=== PATIENT | male | born 1960 | race African-American/Black ===

== ENCOUNTER 2022-11-27 10:18 | Emergency (ER) | payer MEDICAID ==
[~2022-11-27] VITALS: Ht 180.3 cm; Wt 81.8 kg
[2022-11-27] MEDS ORDERED: PERTUSS(ACELL),DIPH,TET VAC/PF 0.5 ML SYRINGE IM. ONE (12:45)
[2022-11-27 12:51] VITALS: BP 164/93
== END 2022-11-27 13:37 | disposition home or self-care (01) ==
LOC: EMS 10:23
DX: S61.317A Laceration without foreign body of left little finger with damage to nail, initial encounter (principal); I10 Essential (primary) hypertension; W26.0XXA Contact with knife, initial encounter; Y93.89 Activity, other specified; Y92.89 Other specified places as the place of occurrence of the external cause; Y99.8 Other external cause status
CPT/HCPCS: 12001; 90471; 90715; 99283

== ENCOUNTER 2024-02-21 08:54 | Emergency (ER) | payer MEDICAID ==
[~2024-02-21] VITALS: Ht 177.8 cm; Wt 98.2 kg
[~2024-02-21 08:54] MED LIST: PENI500T2 PO
[2024-02-21 08:56] VITALS: TEMP 98.6
[2024-02-21] MEDS: ACETAMINOPHEN 500 MG TABLET PO ONE (09:36)
[2024-02-21 09:40] LABS: BASOPHILS % (AUTO) 1.5 % (0.0-2.0); EOSINOPHILS % (AUTO) 7.5 % (1.0-6.0); HEMATOCRIT 43.8 % (41-53); LYMPHOCYTES # (AUTO) 1.8 K/uL (1.0-4.8); LYMPHOCYTES % (AUTO) 24.4 % (22.0-44.0); MEAN CORPUSCULAR HGB CONC 34.3 G/dL (31.0-37.0); MEAN CORPUSCULAR VOLUME 93 fL (80-100); MONOCYTES # (AUTO) 0.4 K/uL (0.1-1.0); MONOCYTES % (AUTO) 4.7 % (2.0-9.0); NEUTROPHILS # (AUTO) 4.6 K/uL (1.8-7.7); NEUTROPHILS % (AUTO) 61.9 % (40.0-70.0); PLATELET COUNT (AUTO) 243 K/uL (150-450); RED BLOOD CELL COUNT(AUTO) 4.71 MIL/uL (4.50-5.90); RED CELL DISTRIBUTION WIDTH 12.8 % (11.5-14.5); WHITE BLOOD COUNT (AUTO) 7.5 K/uL (4.5-11.0)
[2024-02-21 09:41] LABS: COVID AG,FIA SOURCE NASAL SWAB
[2024-02-21 09:48] LABS: CREATININE 1.45 mg/dL (0.60-1.30); POTASSIUM 4.1 mmol/L (3.5-5.1)
[2024-02-21 09:56] LABS: TROPONIN I-HIGH SENSITIVITY 11 ng/L (<76)
[2024-02-21 10:15] LABS: BILIRUBIN,TOTAL 0.7 mg/dL (0.1-1.0); TOTAL PROTEIN, SERUM 8.3 g/dL (6.4-8.2)
[2024-02-21 10:17] LABS: SARS-COV2 (COVID) ANTIGEN,FIA Negative (Negative)
[2024-02-21] MEDS: IBUPROFEN 600 MG TABLET PO ONE (10:22)
[2024-02-21 10:26] LABS: ALCOHOL, URINE DRUG SCREEN NEGATIVE (NEGATIVE); AMPHET/METH SCREEN,URINE NEGATIVE (NEGATIVE); BARBITURATE SCREEN, URINE NEGATIVE (NEGATIVE); BENZODIAZEPINES SCREEN,URINE NEGATIVE (NEGATIVE); CANNABINOID SCREEN,URINE NEGATIVE (NEGATIVE); COCAINE SCREEN,URINE NEGATIVE (NEGATIVE); METHADONE SCREEN, URINE NEGATIVE (NEGATIVE); OPIATE SCREEN,URINE NEGATIVE (NEGATIVE); PHENCYCLIDINE SCREEN,URINE NEGATIVE (NEGATIVE)
[2024-02-21 10:30] VITALS: BP 236/142; PULSE 69; RESP 16
[2024-02-21] MEDS ORDERED: IBUP-1492 PO (10:33)
[2024-02-21] MEDS ORDERED: ACET-3385 PO (10:33)
== END 2024-02-21 11:09 | disposition left against medical advice (07) ==
LOC: EMS 08:54
DX: I10 Essential (primary) hypertension (principal); M79.671 Pain in right foot; Z20.822 Contact with and (suspected) exposure to COVID-19
CPT/HCPCS: 71045; 80053; 80307; 82550; 83880; 84484; 85025; 93005; 99285; 36415-L1; 36415-TC

== ENCOUNTER 2025-08-23 13:36 | Emergency (ER) | payer MEDICARE, MEDICAID ==
[~2025-08-23] VITALS: Ht 177.8 cm; Wt 93.6 kg
[~2025-08-23 13:36] MED LIST changes: +ACET-3385 PO; +IBUP-1492 PO
[2025-08-23 13:47] VITALS: TEMP 98.6
[2025-08-23] MEDS ORDERED: [UNRECOGNIZED DRUG - REMARK] PO (13:48)
[2025-08-23 14:00] LABS: COVID AG,FIA SOURCE NASAL SWAB
[2025-08-23 14:11] VITALS: BP 214/121; PULSE 92; RESP 16; O2SAT 99
[2025-08-23 14:21] LABS: SARS-COV2 (COVID) ANTIGEN,FIA Negative (Negative)
== END 2025-08-23 15:02 | disposition left against medical advice (07) ==
LOC: EMS 14:17
DX: J06.9 Acute upper respiratory infection, unspecified (principal); I10 Essential (primary) hypertension; R09.81 Nasal congestion; Z20.822 Contact with and (suspected) exposure to COVID-19
CPT/HCPCS: 99283